=== PATIENT | female | born 1960 | race American Indian/Alaskan Native ===

== ENCOUNTER 2017-06-13 14:04 | Inpatient (IN) | payer MEDICARE ==
[2017-06-13 14:18] VITALS: BMI 48.3
[2017-06-13] MEDS ORDERED: oxyCODONE 5 mg Immediate Release Tab PO PRN ×2 (15:01)
--- NOTE | 2017-06-13 15:13 | CP.PCM.HP ---
History of Present Illness - History of Present Illness History of Present Illness: 56 y/o female patient with PMH HTN, Dyslipidemia, osteoarthritis with multiple joint replacement ( L THR and L TKR ) , obesity was admitted at [facility] [place] and underwent right TKR. Patient now transferred to acute rehab for physical therapy. At present feeling well, pain is controlled with pain medication. Denies any CP , SOB, palpitations, PND, orthopnea, urinary symptoms.No bowel movements post op. Allergies; None PMH : HTN, dyslipidemia, obesity,osteoarthritis Medications; see med rec Surgery ; left THR , left TKR , D&C , right TKR family history ; None Social history ; lives by herself in [place] , , has 3 children, denies any smoking , ETOH ort drug abuse, walks with a cane, has 24 steps at home does no work ROS ; 14 point review of system negative except above PMD; Dr. Jeancarlos Lin Present on Admission - Present on Admission Any Indicators Present on Admission: No Review of Systems - Review of Systems All systems: reviewed and no additional remarkable complaints except Past Patient History - Infectious Disease Hx of Infectious Diseases: None - Tetanus Immunizations Tetanus Immunization: Unknown - Past Medical History & Family History Past Medical History?: Yes Past Family History: Reviewed and not pertinent - Past Social History Smoking Status: Never Smoked Chewing Tobacco Use: No Cigar Use: No Alcohol: None Drugs: Denies Home Situation {Lives}: Alone Domestic Violence: Negative - CARDIAC Hx Hypercholesterolemia: Yes Hx Hypertension: Yes - PULMONARY Hx Respiratory Disorders: No - NEUROLOGICAL Hx Neurological Disorder: No - HEENT Hx HEENT Problems: No - RENAL Hx Chronic Kidney Disease: No - ENDOCRINE/METABOLIC Hx Endocrine Disorders: No - HEMATOLOGICAL/ONCOLOGICAL Hx Blood Disorders: No - INTEGUMENTARY Hx Dermatological Problems: No - MUSCULOSKELETAL/RHEUMATOLOGICAL Hx Arthritis: Yes Hx Degenerative Joint Disease: Yes Hx Osteoarthritis: Yes Hx Unsteady Gait: Yes - GASTROINTESTINAL Hx Gastrointestinal Disorders: No - GENITOURINARY/GYNECOLOGICAL Hx Genitourinary Disorders: No - PSYCHIATRIC Hx Psychophysiologic Disorder: No - SURGICAL HISTORY Hx Surgeries: Yes Hx Joint Replacement: Yes (left THR , left TKR, right TKR) - ANESTHESIA Hx Anesthesia: Yes Hx Anesthesia Reactions: No Hx Malignant Hyperthermia: No Has any member of the family had a problem w/ anesthesia?: No Meds Allergies/Adverse Reactions: Allergies Allergy/AdvReac Type Severity Reaction Status Date / Time acetaminophen [From Percocet] Allergy ITCHING Verified 06/13/17 14:17 oxycodone [From Percocet] Allergy ITCHING Verified 06/13/17 14:17 Physical Exam - Constitutional Appears: Non-toxic, No Acute Distress, Other (morbidly obese) - Head Exam Head Exam: ATRAUMATIC, NORMAL INSPECTION, NORMOCEPHALIC - Eye Exam Eye Exam: EOMI, Normal appearance, PERRL Pupil Exam: NORMAL ACCOMODATION - ENT Exam ENT Exam: Mucous Membranes Moist, Normal Exam - Neck Exam Neck exam: Positive for: Full Rom, Normal Inspection - Respiratory Exam Respiratory Exam: Clear to Auscultation Bilateral, NORMAL BREATHING PATTERN. absent: Rales, Rhonchi, Wheezes - Cardiovascular Exam Cardiovascular Exam: REGULAR RHYTHM, RRR, +S1, +S2. absent: JVD - GI/Abdominal Exam GI & Abdominal Exam: Normal Bowel Sounds, Soft. absent: Distended, Guarding, Rebound, Tenderness - Rectal Exam Rectal Exam: Deferred - Extremities Exam Extremities exam: Positive for: normal capillary refill, pedal pulses present. Negative for: calf tenderness, pedal edema Additional comments: right knee surgical incision with marquis in place , healing well - Back Exam Back exam: NORMAL INSPECTION - Neurological Exam Neurological exam: Alert, CN II-XII Intact, Oriented x3, Reflexes Normal - Psychiatric Exam Psychiatric exam: Normal Affect, Normal Mood - Skin Skin Exam: Dry, Intact, Normal Color, Warm Assessment & Plan - Assessment and Plan (Free Text) Assessment: 56 y/o female patient with PMH HTN, Dyslipidemia, osteoarthritis with multiple joint replacement ( L THR and L TKR ) , obesity was admitted at [facility] [place] and underwent right TKR. Patient now transferred to acute rehab for physical therapy. At present feeling well, pain is controlled with pain medication. Denies any CP , SOB, palpitations, PND, orthopnea, urinary symptoms.No bowel movements post op. 1. Osteoarthritis --s/p right TKR ( 06/11/17) Admit to acute rehab physiatry consult with Dr. Lemus pain management with Morphine ER and Oxycodone PRN Colace, senekot stool softener DVt prophylaxis with eliquis as per ortho recommendations start PT / OT 2. Hypertension resume home meds Lisinopril and metoprolol 3. Dyslipidemia on statin 4. Morbid Obesity Needs nutrition consult 5. DVt prophylaxis on eliquis
[2017-06-13] MEDS ORDERED: Morphine 15 mg SR Tab PO SCH (15:15)
--- NOTE | 2017-06-13 17:45 | CP.PCM.CON ---
History of Present Illness - History of Present Illness History of Present Illness: Dr Lemus PMR consultation on Orin Maldonado, born 1960, who has been admitted to [facility] for acute inpatient rehabilitation following a right TKR by Dr Celeste [place] [facility] [place]. Post op no complications, but + constipation and no BM post op yet. Multiple past orthopedic surgeries including left shoulder RC repair and left THR. Ambulated at home with a SC. Morbid obesity Review of Systems - Constitutional Constitutional: absent: Anorexia, Chills - EENT Eyes: absent: Change in Vision Ears: absent: Decreased Hearing Nose/Mouth/Throat: absent: Nasal Congestion, Bleeding Gums - Cardiovascular Cardiovascular: absent: Chest Pain - Respiratory Respiratory: absent: Wheezing, Stridor, Pain on Inspiration - Gastrointestinal Gastrointestinal: Constipation. absent: Abdominal Pain - Musculoskeletal Musculoskeletal: absent: Back Pain - Integumentary Integumentary: absent: Bleeding Lesions (incision CDI with marquis) - Neurological Neurological: absent: Abnormal Movements Past Patient History - Past Medical History & Family History Past Medical History?: Yes - Past Social History Smoking Status: Never Smoked - CARDIAC Hx Hypercholesterolemia: Yes - HEMATOLOGICAL/ONCOLOGICAL Hx AIDS: No Hx Blood Transfusions: Yes Hx Blood Transfusion Reaction: No Hx Human Immunodeficiency Virus (HIV): No - MUSCULOSKELETAL/RHEUMATOLOGICAL Hx Arthritis: Yes Hx Falls: No Other/Comment: chronic rt knee pain and stiffness s/p left knee surgery 2004, hip replacement 2009 - GENITOURINARY/GYNECOLOGICAL Other/Comment: c section - PSYCHIATRIC Hx Substance Use: No - SURGICAL HISTORY Hx Orthopedic Surgery: Yes (hip replacement left knee surgery) - ANESTHESIA Hx Anesthesia: Yes Hx Anesthesia Reactions: No Has any member of the family had a problem w/ anesthesia?: No Meds Allergies/Adverse Reactions: Allergies Allergy/AdvReac Type Severity Reaction Status Date / Time acetaminophen [From Percocet] Allergy ITCHING Verified 06/13/17 14:17 oxycodone [From Percocet] Allergy ITCHING Verified 06/13/17 14:17 - Medications Medications: Current Medications Acetaminophen (Tylenol 325mg Tab) 650 mg PO Q6 PRN PRN Reason: Fever >100.4 F Apixaban (Eliquis) 2.5 mg PO BID JASMINE PRN Reason: Protocol Hydrochlorothiazide (Hydrodiuril) 25 mg PO DAILY JASMINE Lisinopril (Zestril) 10 mg PO DAILY JASMINE Metoprolol Succinate (Toprol Xl) 200 mg PO DAILY [facility] Morphine Sulfate (Morphine Extended Release Tab) 15 mg PO Q12H [facility] Ondansetron HCl (Zofran Tab) 4 mg PO DAILY PRN PRN Reason: Nausea/Vomiting Oxycodone HCl (Oxycodone Immediate Release Tab) 5 mg PO Q4 PRN PRN Reason: Pain, Moderate (4-6). Oxycodone HCl (Oxycodone Immediate Release Tab) 10 mg PO Q4 PRN PRN Reason: pain, severe (7-10). Pantoprazole Sodium (Protonix Ec Tab) 40 mg PO DAILY [facility] Pravastatin Sodium (Pravachol) 20 mg PO HS [facility] Pregabalin (Lyrica) 50 mg PO BID [facility] Senna/Docusate Sodium (Senokot S 50 Mg-8.6 Mg) 2 tab PO HS [facility] Physical Exam - Constitutional Appears: Non-toxic, No Acute Distress - Head Exam Head Exam: ATRAUMATIC, NORMAL INSPECTION, NORMOCEPHALIC - Eye Exam Eye Exam: EOMI - ENT Exam ENT Exam: Mucous Membranes Moist - Respiratory Exam Respiratory Exam: NORMAL BREATHING PATTERN - Cardiovascular Exam Cardiovascular Exam: REGULAR RHYTHM - GI/Abdominal Exam GI & Abdominal Exam: absent: Firm - Extremities Exam Extremities exam: Positive for: pedal edema (with THERESA wrap on. Incision + marquis, CDI) - Neurological Exam Neurological exam: Alert, CN II-XII Intact, Oriented x3 - Psychiatric Exam Psychiatric exam: Normal Affect, Normal Mood Results - Vital Signs Recent Vital Signs: Last Vital Signs Temp Pulse Resp 18 06/13/17 16:04 BP Pulse Ox 97 06/13/17 16:04 Assessment & Plan - Assessment and Plan (Free Text) Assessment: s/p right TKR, obesity and djd with past left THR and left rotator cuff repair PT/OT to continue to help increase functional independence Team conference for d/c planning Pain: controlled Vascular: no evidence of DVT, on DVT prophylaxis GI: + constipation, will increase bowel regimen Patient is an excellent acute rehabilitation candidate and will have focused pain management, wound care, PT, OT and recreational therapy to help facilitate a safe and appropriate d/c plan Plan: impairment code 08.61
--- NOTE | 2017-06-13 17:49 | CP.PCM.PN ---
Subjective - Date & Time of Evaluation Date of Evaluation: 06/13/17 Time of Evaluation: 17:48 - Subjective Subjective: right TKR Objective - Vital Signs/Intake and Output Vital Signs (last 24 hours): Temp Pulse Resp BP Pulse Ox 18 97 06/13/17 16:04 06/13/17 16:04 - Medications Medications: Current Medications Acetaminophen (Tylenol 325mg Tab) 650 mg PO Q6 PRN PRN Reason: Fever >100.4 F Apixaban (Eliquis) 2.5 mg PO BID JASMINE PRN Reason: Protocol Hydrochlorothiazide (Hydrodiuril) 25 mg PO DAILY J[facility] Lisinopril (Zestril) 10 mg PO DAILY [facility] Metoprolol Succinate (Toprol Xl) 200 mg PO DAILY [facility] Morphine Sulfate (Morphine Extended Release Tab) 15 mg PO Q12H [facility] Ondansetron HCl (Zofran Tab) 4 mg PO DAILY PRN PRN Reason: Nausea/Vomiting Oxycodone HCl (Oxycodone Immediate Release Tab) 5 mg PO Q4 PRN PRN Reason: Pain, Moderate (4-6). Oxycodone HCl (Oxycodone Immediate Release Tab) 10 mg PO Q4 PRN PRN Reason: pain, severe (7-10). Pantoprazole Sodium (Protonix Ec Tab) 40 mg PO DAILY J[facility] Pravastatin Sodium (Pravachol) 20 mg PO HS [facility] Pregabalin (Lyrica) 50 mg PO BID JASMINE Senna/Docusate Sodium (Senokot S 50 Mg-8.6 Mg) 2 tab PO HS [facility] Physiatry Overall Plan of Care - Overall Plan of Care Estimated Length of Stay in Weeks: 2 Rehab Impairment: Mobility, Gait, Balance, Coordination Etiologic Diagnosis: Hip/Knee Surgery Rehab/Medical Prognosis: Fair - Anticipated Interventions Physical Therapy:: Yes Occupational Therapy:: Yes Speech Therapy:: No Recreational Therapy:: Yes - Therapy Goals Bed Mobility: Supervision Ambulation: Supervision Functional Positional Changes:: Supervision - Discharge Plan Identification of Barriers to Discharge: Home Situation Discharge Destination: Home
[2017-06-13] MEDS: Docusate-Senna 50 mg-8.6 mg Tab PO SCH (21:40)
[2017-06-13] MEDS: Pravastatin Sodium 20 MG TAB PO SCH (21:40)
[2017-06-13] MEDS: Morphine 15 mg SR Tab PO SCH (21:41)
[2017-06-14] MEDS: Povidone Iodine Topical 10% Sol TOP SCH (06:19)
[2017-06-14] MEDS ORDERED: Povidone Iodine Topical 10% Sol TOP SCH (06:30)
[2017-06-14 07:08] LABS: HEMOGLOBIN 9.6 g/dL (12.0-16.0); MEAN CELL VOLUME 81.3 fl (81.0-99.0); MEAN CORPUSCULAR HEMOGLOBIN 26.6 pg (27.0-31.0); MEAN CORPUSCULAR HGB CONC 32.7 g/dL (33.0-37.0); RBC 3.6 Mil/uL (3.80-5.20); WHITE BLOOD COUNT 15.5 K/uL (4.8-10.8)
[2017-06-14 07:31] LABS: INR 1.5 (0.9-1.2); PROTHROMBIN TIME 17.1 Seconds (9.8-13.1)
[2017-06-14 07:46] LABS: CALCIUM 9.1 mg/dL (8.4-10.2)
[2017-06-14] MEDS: Metoprolol Succinate 100 mg XL Tab PO SCH (08:32)
[2017-06-14] MEDS: Pantoprazole 40 mg EC Tab PO SCH (08:32)
[2017-06-14] MEDS: Morphine 15 mg SR Tab PO SCH ×2 (08:34→22:01)
[2017-06-14] MEDS ORDERED: Potassium Chloride 20 mEq ER Tab PO ONE (10:53)
[2017-06-14] MEDS: Sodium Chloride 0.9% 1,000 ML IV SCH ×2 (17:14→21:53)
[2017-06-14] MEDS: Docusate-Senna 50 mg-8.6 mg Tab PO SCH (21:58)
[2017-06-14] MEDS: Pravastatin Sodium 20 MG TAB PO SCH (21:59)
[2017-06-15] MEDS: Sodium Chloride 0.9% 1,000 ML IV SCH ×3 (00:43→16:55)
[2017-06-15] MEDS: Povidone Iodine Topical 10% Sol TOP SCH (06:39)
[2017-06-15 08:03] LABS: BASO % 0.3 % (0.0-2.0); EOS # 0.2 K/uL (0.0-0.7); EOS % 2.1 % (0.0-4.0); HEMOGLOBIN 8.7 g/dL (12.0-16.0); LYMPH # 1.5 K/uL (1.0-4.3); LYMPH % 13.5 % (20.0-40.0); MEAN CELL VOLUME 81.7 fl (81.0-99.0); MEAN CORPUSCULAR HEMOGLOBIN 26.8 pg (27.0-31.0); MEAN CORPUSCULAR HGB CONC 32.8 g/dL (33.0-37.0); MEAN PLATELET VOLUME 8.9 fl (7.2-11.7); MONO # 1.4 K/uL (0.0-0.8); MONO % 12.7 % (0.0-10.0); NEUT # 7.7 K/uL (1.8-7.0); NEUT % 71.4 % (50.0-75.0); NRBC % 0.1 % (0.0-0.0); RBC 3.23 Mil/uL (3.80-5.20); RED CELL DISTRIBUTION WIDTH 14.2 % (11.5-14.5); WHITE BLOOD COUNT 10.8 K/uL (4.8-10.8)
[2017-06-15] MEDS: Pantoprazole 40 mg EC Tab PO SCH (08:21)
[2017-06-15] MEDS: Metoprolol Succinate 100 mg XL Tab PO SCH (08:24)
[2017-06-15 08:29] LABS: CALCIUM 8.8 mg/dL (8.4-10.2)
[2017-06-15] MEDS: Morphine 15 mg SR Tab PO SCH ×2 (09:34→20:12)
[2017-06-15] MEDS ORDERED: Potassium Chloride 20 mEq ER Tab PO STA (11:30)
[2017-06-15 17:37] LABS: SQUAMOUS EPITHIAL 2 /hpf (0-5); URINE BILIRUBIN NEGATIVE (NEGATIVE); URINE BLOOD NEGATIVE (NEGATIVE); URINE CLARITY CLOUDY (Clear); URINE COLOR AMBER (YELLOW); URINE GLUCOSE (UA) NEG (Normal); URINE LEUKOCYTE ESTERASE NEG Leu/uL (Negative); URINE NITRATE NEGATIVE (NEGATIVE); URINE PROTEIN 100 mg/dL (NEGATIVE)
[2017-06-15] MEDS: guaiFENesin 100 mg/5 ml Syrup UD PO PRN (18:01)
[2017-06-15] MEDS: Pravastatin Sodium 20 MG TAB PO SCH (21:05)
[2017-06-15] MEDS: Docusate-Senna 50 mg-8.6 mg Tab PO SCH (21:05)
[2017-06-16] MEDS: Sodium Chloride 0.9% 1,000 ML IV SCH ×3 (00:59→19:53)
[2017-06-16] MEDS: Povidone Iodine Topical 10% Sol TOP SCH (06:00)
[2017-06-16] MEDS: Morphine 15 mg Immediate Release Tab PO PRN (06:11)
[2017-06-16] MEDS: guaiFENesin 100 mg/5 ml Syrup UD PO PRN ×2 (06:13→21:46)
[2017-06-16 08:35] LABS: CALCIUM 8.6 mg/dL (8.4-10.2)
[2017-06-16] MEDS: Pantoprazole 40 mg EC Tab PO SCH (09:03)
[2017-06-16] MEDS: Morphine 15 mg SR Tab PO SCH ×2 (09:03→20:14)
[2017-06-16] MEDS: Metoprolol Succinate 100 mg XL Tab PO SCH (09:05)
[2017-06-16] MEDS ORDERED: Sodium Chloride 0.9% 1,000 ML IV SCH (10:52)
[2017-06-16] MEDS ORDERED: Potassium Chloride 20 mEq ER Tab PO ONE (10:52)
[2017-06-16] MEDS: Docusate-Senna 50 mg-8.6 mg Tab PO SCH (21:46)
[2017-06-16] MEDS: Pravastatin Sodium 20 MG TAB PO SCH (21:46)
[2017-06-17] MEDS: Povidone Iodine Topical 10% Sol TOP SCH (06:21)
[2017-06-17] MEDS: Sodium Chloride 0.9% 1,000 ML IV SCH ×3 (06:31→22:06)
[2017-06-17 07:12] LABS: CALCIUM 8.7 mg/dL (8.4-10.2)
[2017-06-17 07:14] LABS: MEAN CELL VOLUME 83.6 fl (81.0-99.0); MEAN CORPUSCULAR HEMOGLOBIN 26.5 pg (27.0-31.0); MEAN CORPUSCULAR HGB CONC 31.7 g/dL (33.0-37.0); RBC 3.39 Mil/uL (3.80-5.20); WHITE BLOOD COUNT 7.1 K/uL (4.8-10.8)
[2017-06-17] MEDS: Morphine 15 mg SR Tab PO SCH ×2 (08:57→21:36)
[2017-06-17] MEDS: Pantoprazole 40 mg EC Tab PO SCH (08:58)
[2017-06-17] MEDS: Metoprolol Succinate 100 mg XL Tab PO SCH (08:59)
--- NOTE | 2017-06-17 12:07 | CP.PCM.PN ---
Subjective - Date & Time of Evaluation Date of Evaluation: 06/17/17 Time of Evaluation: 16:30 - Subjective Subjective: Patient seen and examined bedside. Sitting in chair in NAD. Complains of constipation . Participating with PT. Pain to right knee is controlled Hmodynamically stable, afebrile. No acute issues overnight Objective - Vital Signs/Intake and Output Vital Signs (last 24 hours): Temp Pulse Resp BP Pulse Ox 98.3 F 90 22 137/81 99 06/17/17 08:35 06/17/17 08:59 06/17/17 08:35 06/17/17 08:59 06/17/17 08:35 Intake and Output: 06/17/17 06/17/17 06:59 18:59 Intake Total 1500 Balance 1500 - Medications Medications: Current Medications Acetaminophen (Tylenol 325mg Tab) 650 mg PO Q6 PRN PRN Reason: Fever >100.4 F Apixaban (Eliquis) 2.5 mg PO BID JASMINE PRN Reason: Protocol Last Admin: 06/17/17 08:58 Dose: 2.5 mg Guaifenesin (Robitussin) 100 mg PO Q6 PRN PRN Reason: Cough Last Admin: 06/16/17 21:46 Dose: 100 mg Sodium Chloride (Sodium Chloride 0.9%) 1,000 mls @ 100 mls/hr IV .Q10H [facility] Stop: 06/17/17 19:04 Last Admin: 06/17/17 06:31 Dose: 100 mls/hr Metoprolol Succinate (Toprol Xl) 200 mg PO DAILY [facility] Last Admin: 06/17/17 08:59 Dose: 200 mg Morphine Sulfate (Morphine Extended Release Tab) 15 mg PO Q12 [facility] Last Admin: 06/17/17 08:57 Dose: 15 mg Morphine Sulfate (Morphine Immediate Release Tab) 15 mg PO Q4 PRN PRN Reason: Other - SEE LABEL COMMENTS Last Admin: 06/16/17 06:11 Dose: 15 mg Ondansetron HCl (Zofran Tab) 4 mg PO DAILY PRN PRN Reason: Nausea/Vomiting Pantoprazole Sodium (Protonix Ec Tab) 40 mg PO DAILY [facility] Last Admin: 06/17/17 08:58 Dose: 40 mg Povidone Iodine (Betadine 10% Topical Soln) 15 ml TOP 0630 [facility] Last Admin: 06/17/17 06:21 Dose: 15 ml Pravastatin Sodium (Pravachol) 20 mg PO HS [facility] Last Admin: 06/16/17 21:46 Dose: 20 mg Pregabalin (Lyrica) 50 mg PO BID [facility] Last Admin: 06/17/17 08:58 Dose: 50 mg Senna/Docusate Sodium (Senokot S 50 Mg-8.6 Mg) 2 tab PO HS [facility] Last Admin: 06/16/17 21:46 Dose: 2 tab Sodium Phosphate (Fleet Enema) 135 ml MT DAILY PRN PRN Reason: Constipation Last Admin: 06/14/17 22:06 Dose: 135 ml - Labs Labs: 06/17/17 06:15 06/17/17 06:15 PT 17.1 Seconds (9.8-13.1) H 06/14/17 06:15 INR 1.5 (0.9-1.2) H 06/14/17 06:15 - Constitutional Appears: Non-toxic, No Acute Distress, Other (morbidly obese) - Head Exam Head Exam: ATRAUMATIC, NORMAL INSPECTION, NORMOCEPHALIC - Eye Exam Eye Exam: EOMI, Normal appearance, PERRL Pupil Exam: NORMAL ACCOMODATION - ENT Exam ENT Exam: Mucous Membranes Moist - Neck Exam Neck Exam: Full ROM, Normal Inspection - Respiratory Exam Respiratory Exam: Clear to Ausculation Bilateral, NORMAL BREATHING PATTERN. absent: Rales, Rhonchi, Wheezes, Respiratory Distress - Cardiovascular Exam Cardiovascular Exam: REGULAR RHYTHM, RRR, +S1, +S2. absent: JVD - GI/Abdominal Exam GI & Abdominal Exam: Soft, Normal Bowel Sounds. absent: Distended, Guarding, Tenderness, Rebound - Rectal Exam Rectal Exam: Deferred - Extremities Exam Extremities Exam: Normal Capillary Refill, Normal Inspection. absent: Calf Tenderness, Pedal Edema Additional comments: right knee surgical incision healing well - Back Exam Back Exam: NORMAL INSPECTION - Neurological Exam Neurological Exam: Alert, Awake, CN II-XII Intact, Oriented x3 - Psychiatric Exam Psychiatric exam: Normal Affect, Normal Mood - Skin Skin Exam: Dry, Intact, Normal Color, Warm Assessment and Plan - Assessment and Plan (Free Text) Assessment: 56 y/o female patient with PMH HTN, Dyslipidemia, osteoarthritis with multiple joint replacement ( L THR and L TKR ) , obesity was admitted at [facility] and underwent right TKR. Patient now transferred to acute rehab for physical therapy. At present feeling well, pain is controlled with pain medication. Denies any CP , SOB, palpitations, PND, orthopnea, urinary symptoms.No bowel movements post op. 1. Osteoarthritis --s/p right TKR ( 06/11/17) Continue PT/OT physiatry consult with Dr. Lemus appreciated pain management with Morphine ER and Oxycodone PRN Colace, senekot stool softener DVT prophylaxis with eliquis as per ortho recommendations 2. Hypertension controlled continue Lisinopril and metoprolol 3. Dyslipidemia on statin 4. Morbid Obesity Needs nutrition consult 5.Copnstipation continue Colace/ senekot 6. ALLISON Most likley prerenla Cr went up to 3 and now nrmalized to normal range after IVF continue IVF 7. Anemia Most likely acute blood loss anemia post op Hgb 9 Continue monitor 8. Coagulopathy most likely secondary to eliquis 9. DVt prophylaxis on eliquis
[2017-06-17] MEDS: Morphine 15 mg Immediate Release Tab PO PRN ×2 (12:12→15:53)
[2017-06-17] MEDS: Pravastatin Sodium 20 MG TAB PO SCH (21:36)
[2017-06-17] MEDS: Docusate-Senna 50 mg-8.6 mg Tab PO SCH (21:36)
[2017-06-18] MEDS: guaiFENesin 100 mg/5 ml Syrup UD PO PRN (01:11)
[2017-06-18] MEDS: Povidone Iodine Topical 10% Sol TOP SCH (06:33)
[2017-06-18] MEDS: Morphine 15 mg SR Tab PO SCH ×2 (08:31→21:19)
[2017-06-18] MEDS: Pantoprazole 40 mg EC Tab PO SCH (08:32)
[2017-06-18] MEDS: Metoprolol Succinate 100 mg XL Tab PO SCH (08:32)
[2017-06-18] MEDS: Sodium Chloride 0.9% 1,000 ML IV SCH (08:34)
[2017-06-18] MEDS: Morphine 15 mg Immediate Release Tab PO PRN (11:51)
--- NOTE | 2017-06-18 13:09 | PSY.TMCNF ---
Nursing - Vital Signs Vital Signs (Last 8 hours): Vital Signs 06/18/17 06/18/17 06/18/17 08:32 08:50 09:00 Temperature 96.9 F L 96.9 F L Pulse Rate 87 89 89 Respiratory 20 20 Rate Blood Pressure 129/90 129/92 H 129/92 H O2 Sat by Pulse 100 Oximetry Pain: 8 - Precautions: Precautions: Fall Prevention - Medications/Other Issues Comment: BUN/Creat elevated, IVF x3 days. Postassium low, KDur PO given. - Consults Comment: Dr. Lemus - Skin Incision Site: right knee Dressing Status: Clean, Dry, Intact Incision: Sarah Intact Incision Line Treatment: Daily cleanse with betadine, cover with 4x4, then paper tape. - Toileting Toileting: Modified Independent - Bladder Management Bladder Pattern: Normal Voiding Method: Toilet Bladder Management: Modified Independent Frequency of Accidents: 0 - Bowel Management Bowel Pattern: Normal Bowel Management: Modified Independent Frequency of Accidents: 0 - Transfers Transfers: Supervision - ADL's ADL's: Supervision - Pain Management Comments: Ben MOLINAN, MS04 q12 - Patient/Family Teaching Comments: Care post TKR and safety precautions - Goals/Time Frame Comments: PER MULTIDISCIPLINARY CARE PLAN GOALS - Provider Provider: AFSHIN SCHUSTERN RN CRRN Physical Therapy - Transfers Sit to Stand: Supervision, Verbal Cues - Ambulation Level of Assistance: Supervision, Verbal Cues Distance (ft.): 100 Assistive Devices: Rolling Walker - Stair Negotiation Stairs: Level of Assistance: Not Tested Handrails: Left - Standing Balance Static Stand: Supervision Dynamic Stand: Contact Guard Assist - Pain Management Techniques: Medication, Ice, Position Change, Distraction, Splinting , Inactivity - Insight/Carryover Insight/Carryover: Good - Patient/Family Education Comment: -adaptive/compensatory strategies for adls, functional transfers and mobility. -OT/rehab goals. -uses/applications of commode, gl accountant, sockaide, dressing stick, RW; pt needs further training for improved carryover and understanding - Assessment/Plan Assessment: Pt is engaged in independent leisure tasks. Pt's main barriers to participation is pain and limited activity tolerance level. Pt receives daily room visits for social support and encouragement to participate in sessions. Pt would benefit from participating in recreation therapy sessions to distract pt from pain and improve pt's leisure awareness level. - Goals Timeframe: 1 week Goals: -LOWER BODY DRESSING: Mod I. -LOWER BODY BATHING: Mod I. -TOILETING: Mod I. -GROOMING/standing at sink: Mod I. -UPPER BODY BATHING: I after setup. -HOMEMAKING SKILLS/MEAL PREP: Mod I. -RETRIEVE/TRANSPORT ITEMS from closet, drawer, refrigerator, cupbaord: Mod I. -W/C MANAGEMENT: Mod I - Provider Therapist: ROC MCNEILL PT License Number: [id number] Occupational Therapy - Arousal/Attention/Orientation Patient Orientation: Person, Place, Time, Appropriate to Age, Appropriate to Situation - ADL/IADL Self Feeding: Supervision, Set-up Help Grooming: Set-up Help Dressing-Upper Extremity: Independent, Set-up Help Dressing-Lower Extremity: Verbal Cues, Set-up Help, Contact Guard, Minimal Assistance Homemaking: Verbal Cues, Set-up Help, Minimal Assistance Comment: -with RW. -Lower body dressing tasks with gl accountant, dressing stick and sockaide. -Pt refuses shower task - Sitting Balance Static Sitting: Independent without upper extremity support Dynamic Sitting: Reaches across midline, Reaches within base of support, Requires supervision Comment: at edge of bed - Transfers Wheelchair to Bed Transfers: Supervision Toilet Transfers: Supervision Comment: Tub and shower transfers not assessed d - Upper Extremity Status Right Upper Extremity Comment: AROM is WFLS Left Upper Extremity Comment: AROM is WNLS - Pain Alleviating Techniques: Medication, Ice, Position Change, Distraction, Splinting , Inactivity - Insight/Carryover Insight/Carryover: Good - Patient/Family Education Comment: -adaptive/compensatory strategies for adls, functional transfers and mobility. -OT/rehab goals. -uses/applications of commode, gl accountant, sockaide, dressing stick, RW; pt needs further training for improved carryover and understanding - Assessment/Plan Assessment: Pt is engaged in independent leisure tasks. Pt's main barriers to participation is pain and limited activity tolerance level. Pt receives daily room visits for social support and encouragement to participate in sessions. Pt would benefit from participating in recreation therapy sessions to distract pt from pain and improve pt's leisure awareness level. - Goals Timeframe: 1 week Goals: -LOWER BODY DRESSING: Mod I. -LOWER BODY BATHING: Mod I. -TOILETING: Mod I. -GROOMING/standing at sink: Mod I. -UPPER BODY BATHING: I after setup. -HOMEMAKING SKILLS/MEAL PREP: Mod I. -RETRIEVE/TRANSPORT ITEMS from closet, drawer, refrigerator, cupbaord: Mod I. -W/C MANAGEMENT: Mod I - Provider Therapist: Stefani Cha, OTR/L License Number: [id number] Speech Therapy - Plan Assessment: Pt is engaged in independent leisure tasks. Pt's main barriers to participation is pain and limited activity tolerance level. Pt receives daily room visits for social support and encouragement to participate in sessions. Pt would benefit from participating in recreation therapy sessions to distract pt from pain and improve pt's leisure awareness level. Recreational Therapy - Participation Participation: Monitors His/Her Own Leisure Time - Attendance Attendance: Daily - Activities Leisure Activities: Television - Socialization Level of Socialization: Initiates/interacts freely with care givers and peer - Diversional Time Diversional Time: television - Assessment Assessment/Plan: Pt is engaged in independent leisure tasks. Pt's main barriers to participation is pain and limited activity tolerance level. Pt receives daily room visits for social support and encouragement to participate in sessions. Pt would benefit from participating in recreation therapy sessions to distract pt from pain and improve pt's leisure awareness level. Problems Currently Limiting Participation: pain, decrease leisure awareness level, decrease arousal level Goals and Time Frame: Pt will be encouraged to participate in 1:1 and group recreation therapy sesisons 3-5x week to improve leisure awareness level, arousal level, and to distract pt from pain. - Provider Therapist: Demetra Aguilar, [employer] #[id number] Nutrition - Current Diet Current Diet/ Supplement/ Feedings: Regular diet - Appetite Percent Meal Consumed: 75-100% - Comments Comments: Care post TKR and safety precautions - Assessment/Goals/Time Frame Assessment/Goals/Time Frame: BUN/Creat elevated, IVF x3 days. Postassium low, KDur PO given. - Provider Provider: Regla Paul RD Rehabilitation Plan - Treatment Plan Treatment Plan: Physical Therapy, Occupational Therapy, Dietary, Pain Management , Wound Care, Patient/Family Education - Discharge Plan Estimated Date of Discharge: 06/22/17 Discharge to: Home
--- NOTE | 2017-06-18 13:36 | CP.PCM.PN ---
Subjective - Date & Time of Evaluation Date of Evaluation: 06/18/17 Time of Evaluation: 13:35 - Subjective Subjective: Patient seen pain is well controlled doing well good ROM above 90 degrees continue care set for d/c 06/22/17 Objective - Vital Signs/Intake and Output Vital Signs (last 24 hours): Temp Pulse Resp BP Pulse Ox 96.9 F L 89 20 129/92 H 100 06/18/17 09:00 06/18/17 09:00 06/18/17 09:00 06/18/17 09:00 06/18/17 08:50 Intake and Output: 06/18/17 06/18/17 06:59 18:59 Intake Total 1440 Balance 1440 - Medications Medications: Current Medications Acetaminophen (Tylenol 325mg Tab) 650 mg PO Q6 PRN PRN Reason: Fever >100.4 F Apixaban (Eliquis) 2.5 mg PO BID [facility] PRN Reason: Protocol Last Admin: 06/18/17 08:32 Dose: 2.5 mg Guaifenesin (Robitussin) 100 mg PO Q6 PRN PRN Reason: Cough Last Admin: 06/18/17 01:11 Dose: 100 mg Sodium Chloride (Sodium Chloride 0.9%) 1,000 mls @ 100 mls/hr IV .Q10H [facility] Last Admin: 06/18/17 08:34 Dose: 100 mls/hr Metoprolol Succinate (Toprol Xl) 200 mg PO DAILY [facility] Last Admin: 06/18/17 08:32 Dose: 200 mg Morphine Sulfate (Morphine Extended Release Tab) 15 mg PO Q12 [facility] Last Admin: 06/18/17 08:31 Dose: 15 mg Morphine Sulfate (Morphine Immediate Release Tab) 15 mg PO Q4 PRN PRN Reason: Other - SEE LABEL COMMENTS Last Admin: 06/18/17 11:51 Dose: 15 mg Ondansetron HCl (Zofran Tab) 4 mg PO DAILY PRN PRN Reason: Nausea/Vomiting Pantoprazole Sodium (Protonix Ec Tab) 40 mg PO DAILY [facility] Last Admin: 06/18/17 08:32 Dose: 40 mg Povidone Iodine (Betadine 10% Topical Soln) 15 ml TOP 0630 [facility] Last Admin: 06/18/17 06:33 Dose: 15 ml Pravastatin Sodium (Pravachol) 20 mg PO HS [facility] Last Admin: 06/17/17 21:36 Dose: 20 mg Pregabalin (Lyrica) 50 mg PO BID [facility] Last Admin: 06/18/17 08:32 Dose: 50 mg Senna/Docusate Sodium (Senokot S 50 Mg-8.6 Mg) 2 tab PO HS [facility] Last Admin: 06/17/17 21:36 Dose: 2 tab Sodium Phosphate (Fleet Enema) 135 ml [place] DAILY PRN PRN Reason: Constipation Last Admin: 06/14/17 22:06 Dose: 135 ml - Labs Labs: 06/17/17 06:15 06/17/17 06:15 PT 17.1 Seconds (9.8-13.1) H 06/14/17 06:15 INR 1.5 (0.9-1.2) H 06/14/17 06:15
[2017-06-18 13:55] LABS: GFR AFRICAN-AMERICAN > 60; GFR NON-AFRICAN AMERICAN 51
[2017-06-18 13:56] LABS: BLOOD UREA NITROGEN 16 mg/dl (7-17); CALCIUM 9.2 mg/dL (8.4-10.2)
[2017-06-18] MEDS: Pravastatin Sodium 20 MG TAB PO SCH (21:20)
[2017-06-18] MEDS: Docusate-Senna 50 mg-8.6 mg Tab PO SCH (21:48)
[2017-06-19] MEDS: Povidone Iodine Topical 10% Sol TOP SCH (06:33)
[2017-06-19] MEDS: Morphine 15 mg SR Tab PO SCH ×2 (08:31→21:26)
[2017-06-19] MEDS: Pantoprazole 40 mg EC Tab PO SCH (08:32)
[2017-06-19] MEDS: Metoprolol Succinate 100 mg XL Tab PO SCH (08:32)
[2017-06-19] MEDS: Morphine 15 mg Immediate Release Tab PO PRN (12:29)
--- NOTE | 2017-06-19 17:15 | CP.PCM.PN ---
Subjective - Date & Time of Evaluation Date of Evaluation: 06/19/17 Time of Evaluation: 17:14 - Subjective Subjective: Patient seen in room denies sob/cp right knee pain is tolerable happy with progress has been an excellent acute rehab candidate and set to d/c home 06/22 Objective - Vital Signs/Intake and Output Vital Signs (last 24 hours): Temp Pulse Resp BP Pulse Ox 98.3 F 97 H 20 124/75 97 06/19/17 08:24 06/19/17 08:24 06/19/17 08:24 06/19/17 08:32 06/19/17 08:24 - Medications Medications: Current Medications Acetaminophen (Tylenol 325mg Tab) 650 mg PO Q6 PRN PRN Reason: Fever >100.4 F Apixaban (Eliquis) 2.5 mg PO BID [facility] PRN Reason: Protocol Last Admin: 06/19/17 08:32 Dose: 2.5 mg Guaifenesin (Robitussin) 100 mg PO Q6 PRN PRN Reason: Cough Last Admin: 06/18/17 01:11 Dose: 100 mg Metoprolol Succinate (Toprol Xl) 200 mg PO DAILY [facility] Last Admin: 06/19/17 08:32 Dose: 200 mg Morphine Sulfate (Morphine Extended Release Tab) 15 mg PO Q12 [facility] Last Admin: 06/19/17 08:31 Dose: 15 mg Morphine Sulfate (Morphine Immediate Release Tab) 15 mg PO Q4 PRN PRN Reason: Other - SEE LABEL COMMENTS Last Admin: 06/19/17 12:29 Dose: 15 mg Ondansetron HCl (Zofran Tab) 4 mg PO DAILY PRN PRN Reason: Nausea/Vomiting Pantoprazole Sodium (Protonix Ec Tab) 40 mg PO DAILY [facility] Last Admin: 06/19/17 08:32 Dose: 40 mg Povidone Iodine (Betadine 10% Topical Soln) 15 ml TOP 0630 [facility] Last Admin: 06/19/17 06:33 Dose: 15 ml Pravastatin Sodium (Pravachol) 20 mg PO HS [facility] Last Admin: 06/18/17 21:20 Dose: 20 mg Pregabalin (Lyrica) 50 mg PO BID [facility] Last Admin: 06/19/17 08:30 Dose: 50 mg Senna/Docusate Sodium (Senokot S 50 Mg-8.6 Mg) 2 tab PO HS [facility] Last Admin: 06/18/17 21:48 Dose: 2 tab Sodium Phosphate (Fleet Enema) 135 ml [place] DAILY PRN PRN Reason: Constipation Last Admin: 06/14/17 22:06 Dose: 135 ml - Labs Labs: 06/17/17 06:15 06/18/17 13:36 PT 17.1 Seconds (9.8-13.1) H 06/14/17 06:15 INR 1.5 (0.9-1.2) H 06/14/17 06:15
--- NOTE | 2017-06-19 17:50 | CP.PCM.PN ---
Subjective - Date & Time of Evaluation Date of Evaluation: 06/19/17 Time of Evaluation: 17:49 - Subjective Subjective: PATIENT DOING WELL WITH PT HD STABLE NO COMPLAINTS AT THIS TIME. Objective - Vital Signs/Intake and Output Vital Signs (last 24 hours): Temp Pulse Resp BP Pulse Ox 98.3 F 97 H 20 124/75 97 06/19/17 08:24 06/19/17 08:24 06/19/17 08:24 06/19/17 08:32 06/19/17 08:24 - Medications Medications: Current Medications Acetaminophen (Tylenol 325mg Tab) 650 mg PO Q6 PRN PRN Reason: Fever >100.4 F Apixaban (Eliquis) 2.5 mg PO BID [facility] PRN Reason: Protocol Last Admin: 06/19/17 17:17 Dose: 2.5 mg Guaifenesin (Robitussin) 100 mg PO Q6 PRN PRN Reason: Cough Last Admin: 06/18/17 01:11 Dose: 100 mg Metoprolol Succinate (Toprol Xl) 200 mg PO DAILY [facility] Last Admin: 06/19/17 08:32 Dose: 200 mg Morphine Sulfate (Morphine Extended Release Tab) 15 mg PO Q12 [facility] Last Admin: 06/19/17 08:31 Dose: 15 mg Morphine Sulfate (Morphine Immediate Release Tab) 15 mg PO Q4 PRN PRN Reason: Other - SEE LABEL COMMENTS Last Admin: 06/19/17 12:29 Dose: 15 mg Ondansetron HCl (Zofran Tab) 4 mg PO DAILY PRN PRN Reason: Nausea/Vomiting Pantoprazole Sodium (Protonix Ec Tab) 40 mg PO DAILY [facility] Last Admin: 06/19/17 08:32 Dose: 40 mg Povidone Iodine (Betadine 10% Topical Soln) 15 ml TOP 0630 [facility] Last Admin: 06/19/17 06:33 Dose: 15 ml Pravastatin Sodium (Pravachol) 20 mg PO HS [facility] Last Admin: 06/18/17 21:20 Dose: 20 mg Pregabalin (Lyrica) 50 mg PO BID [facility] Last Admin: 06/19/17 17:17 Dose: 50 mg Senna/Docusate Sodium (Senokot S 50 Mg-8.6 Mg) 2 tab PO HS [facility] Last Admin: 06/18/17 21:48 Dose: 2 tab Sodium Phosphate (Fleet Enema) 135 ml [place] DAILY PRN PRN Reason: Constipation Last Admin: 06/14/17 22:06 Dose: 135 ml - Labs Labs: 06/17/17 06:15 06/18/17 13:36 PT 17.1 Seconds (9.8-13.1) H 06/14/17 06:15 INR 1.5 (0.9-1.2) H 06/14/17 06:15 - Constitutional Appears: Non-toxic, No Acute Distress - Head Exam Head Exam: ATRAUMATIC, NORMOCEPHALIC - Eye Exam Eye Exam: EOMI, Normal appearance, PERRL Pupil Exam: NORMAL ACCOMODATION - ENT Exam ENT Exam: Mucous Membranes Moist, Normal Oropharynx - Neck Exam Neck Exam: Full ROM, Normal Inspection. absent: Lymphadenopathy - Respiratory Exam Respiratory Exam: Clear to Ausculation Bilateral, NORMAL BREATHING PATTERN - GI/Abdominal Exam GI & Abdominal Exam: Soft, Normal Bowel Sounds. absent: Tenderness, Organomegaly - Extremities Exam Extremities Exam: Normal Capillary Refill. absent: Tenderness - Back Exam Back Exam: absent: CVA tenderness (L), CVA tenderness (R) - Neurological Exam Neurological Exam: Alert, Awake, Oriented x3 - Psychiatric Exam Psychiatric exam: Normal Affect, Normal Mood - Skin Skin Exam: Dry, Intact, Normal Color, Warm Assessment and Plan - Assessment and Plan (Free Text) Plan: 56 y/o female patient with PMH HTN, Dyslipidemia, osteoarthritis with multiple joint replacement ( L THR and L TKR ) , obesity was admitted at [facility] [place] and underwent right TKR. Patient now transferred to acute rehab for physical therapy. At present feeling well, pain is controlled with pain medication. Denies any CP , SOB, palpitations, PND, orthopnea, urinary symptoms.No bowel movements post op. 1. Osteoarthritis --s/p right TKR ( 06/11/17) Continue PT/OT DOING WELL physiatry consult with Dr. Lemus appreciated pain management with Morphine ER and Oxycodone PRN Colace, senekot stool softener DVT prophylaxis with eliquis as per ortho recommendations 2. Hypertension controlled continue Lisinopril and metoprolol 3. Dyslipidemia on statin 4. Morbid Obesity Needs nutrition consult 5.Copnstipation continue Colace/ senekot 6. ALLISON Most likley prerenla Cr went up to 3 and now nrmalized to normal range after IVF continue IVF 7. Anemia Most likely acute blood loss anemia post op Hgb 9 Continue monitor 8. Coagulopathy most likely secondary to eliquis 9. DVt prophylaxis on eliquis
[2017-06-19] MEDS: Pravastatin Sodium 20 MG TAB PO SCH (21:28)
[2017-06-19] MEDS: Docusate-Senna 50 mg-8.6 mg Tab PO SCH (21:29)
[2017-06-20] MEDS: Povidone Iodine Topical 10% Sol TOP SCH (06:37)
[2017-06-20] MEDS: Morphine 15 mg SR Tab PO SCH ×2 (08:13→20:50)
[2017-06-20] MEDS: Pantoprazole 40 mg EC Tab PO SCH (08:16)
[2017-06-20] MEDS: Metoprolol Succinate 100 mg XL Tab PO SCH (08:16)
[2017-06-20] MEDS: Docusate-Senna 50 mg-8.6 mg Tab PO SCH (21:00)
[2017-06-20] MEDS: Pravastatin Sodium 20 MG TAB PO SCH (21:00)
[2017-06-21] MEDS: Povidone Iodine Topical 10% Sol TOP SCH (06:30)
[2017-06-21 07:55] VITALS: O2SAT 95
[2017-06-21] MEDS: Pantoprazole 40 mg EC Tab PO SCH (08:09)
[2017-06-21] MEDS: Metoprolol Succinate 100 mg XL Tab PO SCH (08:10)
[2017-06-21] MEDS: Morphine 15 mg SR Tab PO SCH ×2 (08:13→21:16)
[2017-06-21] MEDS: Morphine 15 mg Immediate Release Tab PO PRN (16:21)
[2017-06-21] MEDS: Docusate-Senna 50 mg-8.6 mg Tab PO SCH (21:19)
[2017-06-21] MEDS: Pravastatin Sodium 20 MG TAB PO SCH (21:19)
[2017-06-22] MEDS: Povidone Iodine Topical 10% Sol TOP SCH (06:51)
[2017-06-22] MEDS: Morphine 15 mg SR Tab PO SCH (08:28)
[2017-06-22] MEDS: Pantoprazole 40 mg EC Tab PO SCH (08:29)
[2017-06-22] MEDS: Metoprolol Succinate 100 mg XL Tab PO SCH ×2 (08:29→08:35)
[2017-06-22 08:36] VITALS: BP 141/78
[2017-06-22 08:48] VITALS: PULSE 101; RESP 22; TEMP 98.3
--- NOTE | 2017-06-22 19:55 | CP.PCM.DIS ---
Provider - Provider Date of Admission: 06/13/17 14:59 Attending physician: Nacho Thomas MD Consults: Dr Lemus Time Spent in preparation of Discharge (in minutes): 35 Diagnosis - Discharge Diagnosis (1) Osteoarthritis Status: Acute Comment: S/P right TKR. on Eliquis for DVT prophylaxis per advised by orthopedist. discharged in stable condition (2) HTN (hypertension) Status: Acute Comment: BP stable. continue Metoprolol XL 200mg PO daily (3) HLD (hyperlipidemia) Status: Acute Comment: continue Pravastatin Hospital Course - Lab Results Lab Results: Most Recent Lab Values WBC 7.1 K/uL (4.8-10.8) 06/17/17 06:15 RBC 3.39 Mil/uL (3.80-5.20) L 06/17/17 06:15 Hgb 9.0 g/dL (12.0-16.0) L 06/17/17 06:15 Hct 28.4 % (34.0-47.0) L 06/17/17 06:15 MCV 83.6 fl (81.0-99.0) 06/17/17 06:15 MCH 26.5 pg (27.0-31.0) L 06/17/17 06:15 MCHC 31.7 g/dL (33.0-37.0) L 06/17/17 06:15 RDW 15.0 % (11.5-14.5) H 06/17/17 06:15 Plt Count 192 K/uL (130-400) 06/17/17 06:15 MPV 8.9 fl (7.2-11.7) 06/15/17 07:30 Neut % (Auto) 71.4 % (50.0-75.0) 06/15/17 07:30 Lymph % (Auto) 13.5 % (20.0-40.0) L 06/15/17 07:30 [place] % (Auto) 12.7 % (0.0-10.0) H 06/15/17 07:30 Eos % (Auto) 2.1 % (0.0-4.0) 06/15/17 07:30 Baso % (Auto) 0.3 % (0.0-2.0) 06/15/17 07:30 Neut # 7.7 K/uL (1.8-7.0) H 06/15/17 07:30 Lymph # 1.5 K/uL (1.0-4.3) 06/15/17 07:30 [place] # 1.4 K/uL (0.0-0.8) H 06/15/17 07:30 Eos # 0.2 K/uL (0.0-0.7) 06/15/17 07:30 Baso # 0.0 K/uL (0.0-0.2) 06/15/17 07:30 PT 17.1 Seconds (9.8-13.1) H 06/14/17 06:15 INR 1.5 (0.9-1.2) H 06/14/17 06:15 Sodium 136 mmol/l (132-148) 06/18/17 13:36 Potassium 3.9 MMOL/L (3.6-5.0) 06/18/17 13:36 Chloride 103 mmol/L (98-107) 06/18/17 13:36 Carbon Dioxide 27 mmol/L (22-30) 06/18/17 13:36 Anion Gap 10 (10-20) 06/18/17 13:36 BUN 16 mg/dl (7-17) 06/18/17 13:36 Creatinine 1.1 mg/dL (0.7-1.2) 06/18/17 13:36 Est GFR ( Amer) > 60 06/18/17 13:36 Est GFR (Non-Af Amer) 51 06/18/17 13:36 Random Glucose 106 mg/dL (65-105) H 06/18/17 13:36 Calcium 9.2 mg/dL (8.4-10.2) 06/18/17 13:36 Urine Color Radha (YELLOW) 06/15/17 17:11 Urine Clarity Cloudy (Clear) 06/15/17 17:11 Urine pH 5.0 (5.0-8.0) 06/15/17 17:11 Ur Specific [place] 1.019 (1.003-1.030) 06/15/17 17:11 Urine Protein 100 mg/dL (NEGATIVE) 06/15/17 17:11 Urine Glucose (UA) Neg mg/dL (Normal) 06/15/17 17:11 Urine Ketones Negative mg/dL (NEGATIVE) 06/15/17 17:11 Urine Blood Negative (NEGATIVE) 06/15/17 17:11 Urine Nitrate Negative (NEGATIVE) 06/15/17 17:11 Urine Bilirubin Negative (NEGATIVE) 06/15/17 17:11 Urine Urobilinogen 2.0 mg/dL (0.2-1.0) H 06/15/17 17:11 Ur Leukocyte Esterase Neg Norma/uL (Negative) 06/15/17 17:11 Urine RBC (Auto) 3 /hpf (0-3) 06/15/17 17:11 Urine Microscopic WBC 5 /hpf (0-5) 06/15/17 17:11 Ur Squamous Epith Cells 2 /hpf (0-5) 06/15/17 17:11 Hyaline Casts 3-5 /hpf (0-2) H 06/15/17 17:11 - Hospital Course Hospital Course: 56 yo female with history of HTN, HLD, Obesity and OA had right TKR at [facility] [place] . She was later transferred and admitted in Acute Rehab on 06/13/2017 and had PT. Patient did well and now discharged in stable condition. Discharge Exam - Head Exam Head Exam: ATRAUMATIC, NORMOCEPHALIC - Eye Exam Eye Exam: absent: Scleral icterus - ENT Exam ENT Exam: Mucous Membranes Moist - Respiratory Exam Respiratory Exam: absent: Wheezes, Respiratory Distress - Cardiovascular Exam Cardiovascular Exam: REGULAR RHYTHM, +S1, +S2 - GI/Abdominal Exam GI & Abdominal Exam: Soft. absent: Tenderness - Rectal Exam Rectal Exam: Deferred - Neurological Exam Neurological exam: Alert, Oriented x3 - Psychiatric Exam Psychiatric exam: Normal Affect - Skin Skin Exam: Dry, Intact Discharge Plan - Discharge Medications Prescriptions: Metoprolol Succinate 200 mg PO DAILY #14 tab.er.24h Morphine [Morphine Extended Release Tab] 15 mg PO Q12 #10 - Follow Up Plan Condition: GOOD Disposition: HOME/ ROUTINE Instructions: Knee Replacement (GEN)
== END 2017-06-22 14:59 | disposition home health service (06) | DRG 560 ==
PROC: F07Z9FZ Gait Training/Functional Ambulation Treatment using Assistive, Adaptive, Supportive or Protective Equipment (ICD-10-PCS; principal; 2017-06-13)
PROC: F07M6FZ Therapeutic Exercise Treatment of Musculoskeletal System - Whole Body using Assistive, Adaptive, Supportive or Protective Equipment (ICD-10-PCS; 2017-06-13)
PROC: F08Z4FZ Home Management Treatment using Assistive, Adaptive, Supportive or Protective Equipment (ICD-10-PCS; 2017-06-13)
DX: Z47.1 Aftercare following joint replacement surgery (principal); D62 Acute posthemorrhagic anemia; N17.9 Acute kidney failure, unspecified; D68.9 Coagulation defect, unspecified; Z68.43 Body mass index [BMI] 50.0-59.9, adult; E66.01 Morbid (severe) obesity due to excess calories; R26.81 Unsteadiness on feet; Z96.651 Presence of right artificial knee joint; E78.00 Pure hypercholesterolemia, unspecified; E78.5 Hyperlipidemia, unspecified; I10 Essential (primary) hypertension; K59.00 Constipation, unspecified; M19.90 Unspecified osteoarthritis, unspecified site; Z96.642 Presence of left artificial hip joint; G89.29 Other chronic pain; M25.561 Pain in right knee